=== PATIENT | male | born 1950 | race Caucasian/White ===

== ENCOUNTER 2024-01-07 03:32 | Observation (INO) | payer MEDICARE, OTHER, SELFPAY ==
[2024-01-06] VITALS (13 sets, daily range): BP systolic 79–120; BP diastolic 57–90; BMI 27.4
[2024-01-06 18:35] LABS: % Basophils 0.7 % (0-2); % Eosinophils 1.5 % (0-6); % Immature Granulocytes 0.5 % (0-0.5); % Lymphocytes 5.6 % (20.5-51.1); % Neutrophils 83.7 % (42.2-75.2); Absolute Basophils 0.1 10^3/uL (0-0.2); Absolute Eosinophils 0.3 10^3/uL (0-0.7); Absolute Immature Granulocytes 0.1 10^3/uL (0-0.05); Absolute Lymphocytes 0.9 10^3/uL (1.2-3.4); Absolute Monocytes 1.3 10^3/uL (0.1-0.6); Absolute Neutrophils 14.1 10^3/uL (1.4-6.5); Hematocrit 47.6 % (39.0-52.0); Mean Corp Hgb Conc. 33.6 g/dL (33.0-37.0); Mean Corpuscular Hgb 30.1 pg (27.0-31.0); Mean Corpuscular Volume 89.6 fL (80.0-94.0); Nucleated Red Blood Cells % 0 % (-); Platelet Count 261 10^3/uL (130-400); Red Blood Cell Count 5.31 10^6/uL (4.70-6.10); Red Cell Dist. Width 14.5 % (11.5-14.5); White Blood Cell Count 16.8 10^3/uL (4.8-10.8)
[2024-01-06] MEDS: NSS 1000 IV ×2 (18:37→20:45)
[2024-01-06 18:49] LABS: ALT (SGPT) 32 U/L (0-50); AST (SGOT) 30 U/L (17-59); Albumin 4.8 g/dl (3.5-5.0); Alkaline Phosphatase 73 U/L (38-126); Blood Urea Nitrogen 21 mg/dl (9-20); Calcium 10.1 mg/dl (8.4-10.2); Carbon Dioxide 20 mmol/L (22-30); Chloride 105 mmol/L (98-107); Estimated Creatinine Clearance 45 ml/min; Glucose 113 mg/dl (70-99); Lipase 99 U/L (23-300); Potassium 5.2 mmol/L (3.5-5.1); Sodium 134 mmol/L (135-145); Total Bilirubin 0.8 mg/dl (0.2-1.3); Total Protein 7.7 g/dl (6.3-8.2); eGFR 48.55
--- NOTE | 2024-01-06 19:21 | ED.GENMED ---
History of Present Illness
<MARTINEZ Shields - Last Filed: 01/07/24 00:18>
General
Chief Complaint: Abdominal Pain
Source: patient and spouse
Exam Limitations: none
Time Seen by Provider: 01/06/24 18:35
Travel History
Have you had any contact with someone who has COVID-19?: No
Do you have any symptoms of coronavirus? Fever > 100 degrees, chills, cough, shortness of breath, sore throat, loss of taste or smell, muscle aches, or headache?: No
History of Present Illness
History of Present Illness:
This is a 73 year old male that comes in with c/o syncope and abd pain. states that they were at a and he told her he did not feel well. States that she took him home so he could lay down. State that she came home after the
and he said that he felt some better. Then he went into the BR, and he was on the toilet. State that he had a normal BM and then diarrhea. states that she went into the BR and he was bent over and and unresponsive to her. State that he was not
speaking. Patient states that he was dizzy and started to sweat. States that he really did not eat today and he only had coffee. State that he had abd pain, nausea and the diarrhea with a headache and dizziness. Denies any fever, chills, chest pain,
SOB, Vomiting, urinary burning.
Past History
<MARTINEZ Shields - Last Filed: 01/07/24 00:18>
Past History
ED Past Medical History: CAD, CVA, HTN, Hypercholesterolemia, NIDDM and Other (Numbness or arms and legs ,Bowel obstruction)
ED Past Surgical History: Appendectomy and Other (Aortic-Iliac bypass, carotid right endarterectomy)
Social History
Tobacco: Former smoker
Alcohol: None
Drug: None
Personal: Single
Living: with family
Review of Systems
<MARTINEZ Shields - Last Filed: 01/07/24 00:18>
Review of Systems
All Other Systems: ROS reviewed and negative except as documented in HPI and ROS
Constitutional: Reports no symptoms; Denies fever or chills
EENT: Reports no symptoms
Respiratory: Reports no symptoms; Denies cough or trouble breathing
Cardiac: Reports no symptoms; Denies chest pain
ABD/GI: Reports abdominal pain, nausea and diarrhea; Denies vomiting
: Reports no symptoms; Denies dysuria, frequency or urgency
Musculoskeletal: Reports no symptoms
Skin: Reports no symptoms
Neurological: Reports dizzy and headache
Psychiatric: Reports no symptoms
Phy Exam
<MARTINEZ Shields - Last Filed: 01/07/24 00:18>
General Physical Exam
General Presentation: no apparent distress
General age: appears stated age
General Skin: warm and dry
General Habitus: elderly
General Mental: alert
General Hydration: dry mucous membranes
ENT Exam
ENT Exam: TM's normal, pharynx normal and neck supple
Eye Exam
Eye Exam: EOMI
Cardiovascular Exam
Cardiovascular Exam: regular rate/rhythm, no edema and normal peripheral pulses
Pulmonary Exam
Pulmonary Exam: lungs clear, no respiratory distress, no rales, chest non tender, no crackles, no rhonchi, no wheezing and no cough
Gastrointestinal Exam
Gastrointestinal Exam: non tender, soft, no organomegaly, no pulsatile mass, non distended and other (Hyperactive bowel sounds)
Musculoskeletal Exam
Musculoskeletal Exam: full ROM and no edema
Skin Exam
Skin Exam: normal color, warm/dry, no rash and no petechia
Psychiatric Exam
Psychiatric Exam: normal mood/affect
Course
<MARTINEZ Shields - Last Filed: 01/07/24 00:18>
Orders/Labs/Results
Orders:
Orders
01/06/24 18:13
Electrocardiogram (*1) Urgent
Reason for Study: Syncope
EKG- Treatment ONCE
01/06/24 18:26
Complete Blood Count/With Diff Urgent
Comprehensive Metabolic Panel Urgent
Lipase Urgent
01/06/24 18:36
0.9% Sodium Chloride 1000 ml [Nss] 1,000 ml IV BOLUS
01/06/24 19:19
Ondansetron Injectable [Zofran] 4 mg IV NOW STA
01/06/24 19:20
CT Head W/o Iv Contrast Urgent
Comment: Syncope
Reason For Exam: Headache, dizziness,
Orthostatic VS- Treatment ONCE
01/06/24 19:56
Troponin I Urgent
01/06/24 20:45
0.9% Sodium Chloride 1000 ml [Nss] 1,000 ml IV BOLUS
01/06/24 22:15
CT Chest/abd/pelvis Angio W/wo Urgent
Comment:
Reason For Exam: Hypotension, BP different in arms, abd pain
01/06/24 23:23
Troponin I Urgent
Urinalysis Reflex To Culture Urgent
Date Specimen was Collected: 01/06/24
Time Specimen was Collected: 22:38
Abnormal Lab Results
01/06/24
18:26
WBC 16.8 H 10^3/uL
(4.8-10.8)
Abs Immat Gran (auto) 0.1 H 10^3/uL
(0-0.05)
Absolute Neuts (auto) 14.1 H 10^3/uL
(1.4-6.5)
Absolute Lymphs (auto) 0.9 L 10^3/uL
(1.2-3.4)
Absolute Monos (auto) 1.3 H 10^3/uL
(0.1-0.6)
Neutrophils % 83.7 H %
(42.2-75.2)
Lymphocytes % 5.6 L %
(20.5-51.1)
Sodium 134 L mmol/L
(135-145)
Potassium 5.2 H mmol/L
(3.5-5.1)
Carbon Dioxide 20 L mmol/L
(22-30)
BUN 21 H mg/dl
(9-20)
Creatinine 1.5 H mg/dL
(0.7-1.3)
Glucose 113 H mg/dl
(70-99)
01/06/24 18:26
01/06/24 18:26
Leukocytosis, Sodium slightly low. Potassium slightly elevated. Carbon dioxide slightly low. Dehdyration. Glucose nonfasting. Troponin <0.012, Lipase normal at 99
Urine negative for infection. Second Troponin <0.012
Vital Signs
Initial and Last Documented VS:
Initial Vital Signs
Temp Pulse Resp BP Pulse Ox
97.8 F 70 18 82/57 96
01/06/24 18:07 01/06/24 18:07 01/06/24 18:07 01/06/24 18:07 01/06/24 18:07
Last Documented Vital Signs
Temp Pulse Resp BP Pulse Ox
97.8 F 78 22 117/90 93
01/06/24 18:07 01/06/24 23:19 01/06/24 23:19 01/06/24 23:17 01/06/24 23:19
<Idris Villanueva MD - Last Filed: 01/06/24 21:19>
Orders/Labs/Results
Orders:
Orders
01/06/24 18:13
Electrocardiogram (*1) Urgent
Reason for Study: Syncope
EKG- Treatment ONCE
01/06/24 18:26
Complete Blood Count/With Diff Urgent
Comprehensive Metabolic Panel Urgent
Lipase Urgent
01/06/24 18:36
0.9% Sodium Chloride 1000 ml [Nss] 1,000 ml IV BOLUS
01/06/24 19:19
Ondansetron Injectable [Zofran] 4 mg IV NOW STA
01/06/24 19:20
CT Head W/o Iv Contrast Urgent
Comment: Syncope
Reason For Exam: Headache, dizziness,
Orthostatic VS- Treatment ONCE
01/06/24 19:56
Troponin I Urgent
01/06/24 20:45
0.9% Sodium Chloride 1000 ml [Nss] 1,000 ml IV BOLUS
01/06/24 22:15
CT Chest/abd/pelvis Angio W/wo Urgent
Comment:
Reason For Exam: Hypotension, BP different in arms, abd pain
01/06/24 23:23
Troponin I Urgent
Urinalysis Reflex To Culture Urgent
Date Specimen was Collected: 01/06/24
Time Specimen was Collected: 22:38
Abnormal Lab Results
01/06/24
18:26
WBC 16.8 H 10^3/uL
(4.8-10.8)
Abs Immat Gran (auto) 0.1 H 10^3/uL
(0-0.05)
Absolute Neuts (auto) 14.1 H 10^3/uL
(1.4-6.5)
Absolute Lymphs (auto) 0.9 L 10^3/uL
(1.2-3.4)
Absolute Monos (auto) 1.3 H 10^3/uL
(0.1-0.6)
Neutrophils % 83.7 H %
(42.2-75.2)
Lymphocytes % 5.6 L %
(20.5-51.1)
Sodium 134 L mmol/L
(135-145)
Potassium 5.2 H mmol/L
(3.5-5.1)
Carbon Dioxide 20 L mmol/L
(22-30)
BUN 21 H mg/dl
(9-20)
Creatinine 1.5 H mg/dL
(0.7-1.3)
Glucose 113 H mg/dl
(70-99)
01/06/24 18:26
01/06/24 18:26
Vital Signs
Initial and Last Documented VS:
Initial Vital Signs
Temp Pulse Resp BP Pulse Ox
97.8 F 70 18 82/57 96
01/06/24 18:07 01/06/24 18:07 01/06/24 18:07 01/06/24 18:07 01/06/24 18:07
Last Documented Vital Signs
Temp Pulse Resp BP Pulse Ox
97.8 F 78 22 117/90 93
01/06/24 18:07 01/06/24 23:19 01/06/24 23:19 01/06/24 23:17 01/06/24 23:19
<MARTINEZ Shields - Last Filed: 01/07/24 00:18>
MDM/Problems Addressed
Differential Diagnosis Includes:
Viral GI Syndrome, Dehydration, Orthostatic.
MDM/Problems Addressed:
This is a 73 year old male that comes in with c/o abd pain, dizziness and headache. States that he had a BM and diarrhea and he must have passed out as found him slumped over on the toilet. States that he was dizzy and became sweaty.
Will check labs. CT head, Give IV fluids
CT angio cont: Internal iliac artery with distal reconstitution if also seen. Satisfactory contrast bolus to assess for PE. No evidence of PE. Additional findings: Scattered chronic calcified granulomatous disease. vascular calcifications including
coronary artery calcifications. Diffuse low attenuation of the liver may be related to the arterial phase acquisition of fatty liver. DJD. Colonic diverticulosis. Right renal cystic focus. Few hypodense lesions in the spleen, which may represent
pseudocysts or hemangiomas.
back into see patient. Explained that his BP is still low after 2 liters of fluid and his CT Scan shows some age-indeterminate dissections involving the bilateral external iliac arteries. There is also bilateral common iliac arteries, and bilateral
external iliac arteries suspicious for vasculitis. Will admit patient for further evaluation. Explained to patient that this may just be over night. Hospitalist notified.
Chronic conditions affecting care:
Prior Bowel obstruction
Acute Exacerbation and/or Progression of Chronic Illness:
NA
<MARTINEZ Shields - Last Filed: 01/07/24 00:18>
*Radiology
Radiology exam reviewed: radiology read reviewed (CT head-No evidence of acute intracranial abnormality. CT angio chest/Abd/pelvis- Within the limitation of a non-gated study, no evidence of aortic dissection in the chest, abd or pelvis. No
evidence of aortic intramural hematoma within the chest. Age-indeterminate dissections involving the ), all reviewed NAD by ED Provider (CT angio cont- bilateral external iliac arteries. Circumferential mural thickening of the infrarenal abdomina
aorta, bilateral common iliac arteries, and bilateral external iliac arteries, suspicious for vasculitis. 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 Similar appearance) and other (CT cont-of early brancing versus fenestration
versus chronic dissection of the infrarenal abdominal aorta. Severe stenosis of the proximal SMA. Redemonstrated occlusion of the left internal iliac artery, which is also involved by circumferential thickening. Short segment occlusion of proximal
right )
*Pulse Oximetry
Patient hypoxic: no
*EKG
Interpreted by ED Provider?: Yes
Heart Rate: 69
Rate: normal
Rhythm: sinus
[place]: left axis deviation
Interval: normal interval
QRS Pattern: normal QRS
Ischemia: no ischemia (Checked by Dr. Villanueva)
*[employer] Person Interpretation
Rate: normal
Heart Rate: 75
Rhythm: sinus
*Critical Care Note
Total Time (30-74mins, 75-104mins- exclusive of procedures): Not Applicable
ED Attending Note
<MARTINEZ Shields - Last Filed: 01/07/24 00:18>
-
Portions of this chart may have been created with voice recognition software.� Occasional wrong word or��sound alike� substitutions may have occurred due to the inherent limitations of voice recognition software.
<Idris Villanueva MD - Last Filed: 01/06/24 21:19>
ED Attending Note
Patient seen and examined by attending physician: Yes
I performed the substantive portion of visit, reviewed & personally made and approve the management plan that is documented in note by myself or SUE.: Yes
ED Attending Note:
73-year-old male with episode of syncope while on the toilet. Has some abdominal symptoms at a . When he went home he had to have a bowel movement. Had a large amount of stool and diarrhea. No blood no black or tarry. Then had
diaphoresis and passed out on the toilet. No trauma. Feels well now.
On exam patient is nontoxic in no distress. He is however hypotensive. Blood pressure was in the 80s after fluids currently in the 90s. He is perfusing well warm and dry. Lungs are clear heart regular rate and rhythm abdomen soft and nontender.
What nonfocal.
Impression abdominal symptoms followed by syncope. Likely vasovagal syncope however ongoing hypotension further workup needs to be considered including CT of the abdomen pelvis and repeat cardiac testing.
Discharge Plan
Departure
Patient Disposition: Admit
Date of Disposition: 01/07/24
Time of Disposition: 00:17
Admit to: Telemetry
Presentation/result/management discussed w/ accepting MD/DO: Hospitalist
Patient with high blood pressure during this ER visit?: No
Condition: Good
Covid-19: Not Applicable
Discharge Problem:
Hypotension, Syncope
Prescriptions:
No Action
metoprolol tartrate [Lopressor] 50 mg Tablet
50 mg PO BID Qty: 0
Patient Comments:
atorvastatin 80 mg tablet
80 mg PO QPM
amlodipine [Norvasc] 2.5 mg Tablet
2.5 mg PO DAILY
clopidogrel [Plavix] 75 mg Tablet
75 mg PO DAILY
aspirin 81 mg Tablet,Delayed Release (Dr/Ec)
81 mg PO DAILY
glipizide-metformin 5-500 mg tablet
1 tab PO BID
Referrals:
Lenny Barbosa MD [Family Provider] -
Interventions
Interventions:
*Risk Screen - Suicide Last Done: 01/06/24 18:07
*General Assessment Last Done: 01/06/24 18:07
*Neglect/Abuse Screening Last Done: 01/06/24 18:07
CY-Hrzosf-Ljddbqczxn Assessment Last Done: 01/06/24 18:22
Discharge Date and Time
Print Language: RWANDAN
[2024-01-06] MEDS: ZOFRAN 4 MG IV (20:01)
[2024-01-06 20:24] LABS: Troponin I < 0.012 ng/ml
[2024-01-06 23:30] LABS: Urine Albumin Negative (Neg - Trace); Urine Bilirubin Negative (Negative); Urine Character Clear (Clear); Urine Color Yellow; Urine Glucose Negative (Negative); Urine Ketone Negative (Negative); Urine Leukocyte Negative (Negative); Urine Nitrite Negative (Negative); Urine Occult Blood Negative (Negative); Urine Specific Gravity 1.015 (<1.030); Urine Urobilinogen Negative (Neg - 1+)
[2024-01-06 23:55] LABS: Troponin I < 0.012 ng/ml
[2024-01-07] VITALS (16 sets, daily range): BP systolic 97–154; BP diastolic 44–87; PULSE 62–82
--- NOTE | 2024-01-07 00:58 | EDRN ---
At 00:15, pt.'s pulse ox. dropped to 88/89% on RA while sleeping. Pt. denies hx. of sleep apnea, denies shortness of breath. Pt. placed on 2LNC while sleeping, pulse ox. now 95%.
--- NOTE | 2024-01-07 02:29 | HPS.HSE ---
Family Physician
-
Family Physician: Lenny Barbosa
Chief Complaint
-
Syncope
History of Present Illness
Patient is a 73y M with PMH significant for severe ASCVD, hypertension and DM-II who presents to ED complaining of syncopal event at home. Patient states that he felt well yesterday. Today he attended a and noted that he did not feel
well during the service. He was weak and tired and perhaps mildly nauseous. He went home following the service and took a nap. He woke from sleep with the urge to move his bowels. While on the toilet, he became sweaty, dizzy / lightheaded. He
is not certain if he completely lost consciousness at any point. He had diarrhea after these symptoms began.
EMS was called and patient was brought to the ED for further evaluation.
Here in the ED, he states that he feels well. He is thirsty / hungry and notes that he has had nothing to eat since a bowl of oatmeal at 4 AM.
Patient denies any chest pain, abdominal pain, nausea at present.
He denies any prior history of similar symptoms.
Medical History
Past Medical History
Past Medical History: Reports Other
Additional Past Medical History:
Severe ASCVD (Carotid disease, CVA, PAD)
Hypertension
Meningioma
Past Surgical History: Reports Other
Additional Past Surgical History:
Right CEA
Aorto-BiIliac Bypass x 2
Appendectomy
Lumbar Spine Surgery
Social History
Tobacco: Smoker (Current some day smoker. > 50 pack years total use.)
Alcohol: Former (History of alcohol use - none in several years.)
Drug: None
Family History
Family History: CAD and Diabetes
Allergies / Home Medications
Allergies reflects when Allergies were last updated in [facility].
Home Medications with original date entered in [facility]
Allergy/Medication List:
Allergies
Allergy/AdvReac Type Severity Reaction Status Date / Time
No Known Allergies Allergy Verified 06/17/22 11:05
Home Medications
metoprolol tartrate 50 mg tablet (Lopressor) 50 mg PO BID Blood pressure ##0 11/24/14
amlodipine 2.5 mg tablet (Norvasc) 2.5 mg PO DAILY Blood pressure 06/17/22
aspirin 81 mg tablet,delayed release 81 mg PO DAILY Blood clot prevention/tx 06/17/22
atorvastatin 80 mg tablet 80 mg PO QPM High cholesterol 06/17/22
clopidogrel 75 mg tablet (Plavix) 75 mg PO DAILY Blood clot prevention/tx 06/17/22
glipizide 5 mg-metformin 500 mg tablet 1 tab PO BID Diabetes 06/17/22
Review of Systems
-
History Source: Patient
A 12 point ROS was completed and negative except as noted: Yes
Constitutional: Reports Fatigue; Denies Fever or Chills
EENT: Denies Sore Throat
Respiratory: Denies Cough or Trouble Breathing
Cardiac: Reports Diaphoresis and Syncope; Denies Chest Pain or Palpitations
Abdomen/GI: Reports Nausea and Diarrhea; Denies Abdominal Pain, Vomiting, Constipated, Bloody Stools or Black Stools
: Denies Dysuria, Frequency or Flank Pain
Musculoskeletal: Denies Joint Pain, Joint Swelling or Edema
Neurological: Reports Dizzy; Denies Headache
Psych: Denies Depression or Anxiety
Physical Exam
Vital Signs
Vital Signs
Temp Pulse Resp BP Pulse Ox
97.8 F 78 16 125/65 92
01/06/24 18:07 01/07/24 01:45 01/07/24 01:45 01/07/24 01:30 01/07/24 01:45
Physical Exam
General: Other (73y M in no acute distress.)
HEENT: Moist mucous membranes and PERRLA
Respiratory: Clear; No Wheezes, Rales or Rhonchi
Cardiac: S1/S2 and Regular Rhythm; No Murmur
GI: Soft, Non Tender, Non Distended and Normal Bowel Sounds
Musculoskeletal: No Clubbing, No Cyanosis and No Edema
Neuro: AO x 3 and Nonfocal/grossly intact
Laboratory Results
-
01/06/24 18:26
01/06/24 18:
Laboratory Results
Total Bilirubin 0.8 mg/dl (0.2-1.3) 01/06/24 18:
AST 30 U/L (17-59) 01/06/24 18:
ALT 32 U/L (0-50) 01/06/24 18:
Alkaline Phosphatase 73 U/L (38-126) 01/06/24 18:
Troponin I < 0.012 ng/ml 01/06/24 23:23
Lipase 99 U/L (23-300) 01/06/24 18:26
Impression/Plan
-
A/P: Patient is a 73y M with PMH significant for ASCVD, hypertension and DM-II who presents to ED for evaluation s/p syncopal event at home.
Syncope
- Observe overnight for further evaluation and treatment.
- Highly suspicious for vasovagal event given preceding GI symptoms / bowel movement.
- Monitor on tele for any arrhythmia.
- IVF support overnight.
- Follow for any new / recurrent symptoms.
- CT head done in the ED shows chronic / stable encephalomalacia from prior CVA and stable meningioma.
ASCVD
- Patient with severe ASCVD including carotid, CVA, PAD, etc.
- s/p multiple procedures in the past. No coronary stents.
- CTA results reviewed with no significant / acute findings.
- Proximal SMA stenosis seen - may benefit from IR evaluation if he has recurrent abdominal symptoms.
- Continue usual med regimen including DAPT, statin, etc.
- Follow for any new / worsening symptoms.
Benign Hypertension
- Holding parameters for BP medications to avoid hypotension or bradycardia.
- Adjust as needed.
DM-II
- Stable. No noted hypoglycemia; however, patient took AM sulfonylurea / metformin combo today and had only a bowl of oatmeal to eat in the past 24 hours.
- Hold PO meds for now.
- Follow glucose and cover with SSI (or supplemental dextrose) as needed.
- Update A1C.
DVT Prophylaxis: SCDs
Code Status: Full
[2024-01-07] MEDS: NSS 1000 IV (04:57)
[2024-01-07 05:16] LABS: Hematocrit 38.1 % (39.0-52.0); Hemoglobin 12.8 g/dL (13.0-18.0); Mean Corp Hgb Conc. 33.6 g/dL (33.0-37.0); Mean Corpuscular Hgb 29.7 pg (27.0-31.0); Mean Corpuscular Volume 88.4 fL (80.0-94.0); Mean Platelet Volume 9.9 fL (7.4-10.4); Platelet Count 202 10^3/uL (130-400); Red Blood Cell Count 4.31 10^6/uL (4.70-6.10); Red Cell Dist. Width 14.5 % (11.5-14.5)
[2024-01-07 05:54] LABS: Blood Urea Nitrogen 19 mg/dl (9-20); Calcium 8.8 mg/dl (8.4-10.2); Carbon Dioxide 20 mmol/L (22-30); Chloride 109 mmol/L (98-107); Estimated Creatinine Clearance 56 ml/min; Glucose 103 mg/dl (70-99); Potassium 4.5 mmol/L (3.5-5.1); Sodium 135 mmol/L (135-145); eGFR > 60.00
[2024-01-07 06:24] LABS: TSH Reflex To Free T4 0.58 uIU/ml (0.47-4.68)
[2024-01-07 08:50] LABS: Glycohemoglobin (HgbA1c) 6.7 % (4.0-5.6)
--- NOTE | 2024-01-07 09:21 | W.PN.HOSP.TC ---
Today's Communication/Plan
-
possible d/c later today
assess for home O2
check orthostatics
Assessment / Plan
Assessment / Plan
pt is a 73 year old male
Syncope--likely due to vasovagal from GI symptoms/diarrhea--stop IVF--check orthostatics--CT head done in the ED shows chronic / stable encephalomalacia from prior CVA and stable meningioma.
ASCVD--severe ASCVD including carotid, CVA, PAD, abdominal etc-- -s/p multiple procedures in the past--No coronary stents--await CTA results--trouble getting BP in right arm likely due to ASCVD compared to left--Proximal SMA stenosis seen - may
benefit from IR evaluation if he has recurrent abdominal symptoms--Continue usual med regimen including DAPT, statin, etc.
acute hypoxemic resp insufficiency--suspected sleep apnea--not formally diagnosed--assess for home O2--will need outpt sleep eval
Essential Hypertension- Holding parameters for BP medications to avoid hypotension or bradycardia.
DM-II- Stable. No noted hypoglycemia; however, patient took AM sulfonylurea / metformin combo day of admission and had only a bowl of oatmeal to eat in the past 24 hours- Hold PO meds for now - Update A1C.
DVT Prophylaxis: SCDs
Code Status: Full
Anticipated Discharge: Today
Subjective/Interval History
-
Date of Service: January 07, 2024
pt feels fine--does see a vascular doctor at [place] twice per year--just saw in November
Objective Data
-
Labs:
Laboratory Results
01/07/24
05:08
WBC 8.0
Hgb 12.8 L
Hct 38.1 L
Plt Count 202 D
Sodium 135
Potassium 4.5
Chloride 109 H
Carbon Dioxide 20 L
BUN 19
Creatinine 1.2
Glucose 103 H
Calcium 8.8
Vital Signs:
max temp for 24 hours
06/19/22
11:00
Temp 98.3 F
Vital Signs
Temp Pulse Resp BP Pulse Ox
98 F 73 14 132/61 83
01/07/24 08:34 01/07/24 07:00 01/07/24 07:00 01/07/24 06:00 01/07/24 08:17
Review of Systems
-
All other systems: Reviewed and negative
Physical Exam
-
General: Well Developed, Well Nourished and No Apparent Distress
HEENT: Normocephalic, Atraumatic and Oxygen
Respiratory: Clear to Auscultation; Negative Wheezes or Rhonchi
Cardiac: Regular Rhythm and S1/S2; Negative Murmur
GI: Soft, Nontender, Nondistended and Normal Bowel Sounds
Musculoskeletal: No Clubbing, No Cyanosis and No Edema
Skin: Warm and Dry
Neuro: Awake, Alert and Other (bilateral carotid bruits)
--- NOTE | 2024-01-07 09:32 | CM ---
CM reviewed medical records. OBS letter given.
Patient confirmed demographics. Patient lives independently with . Patient denies history of VN, SNF or DME. Patient uses [facility] for medication services. Patient is active with his PCP.
PLAN: Home no needs.
[2024-01-07] MEDS: PLAVIX 75 MG PO (10:34)
[2024-01-07] MEDS: LOPRESSOR 50 MG PO (10:34)
[2024-01-07] MEDS: ASPIR LOW (ENTERIC COATED) 81 MG PO (10:34)
--- NOTE | 2024-01-07 10:50 | PTCARENOTE ---
pt aaox3. states no pain or sob. nsr seen on monitor. placed on room air o2 sat 95%. ortho vs done pt walks to bathroom. states no dizziness.
--- NOTE | 2024-01-07 11:26 | CM ---
Patient medically ready for discharge to home. No needs noted.
PLAN: Home no needs.
--- NOTE | 2024-01-07 13:38 | W.DCSUMMARY ---
Discharge Summary
Discharge Data
Date of Admission: 01/07/24
Date of Discharge: 01/07/24
-
Pending Results: No
Hospital Course
Primary care physician : Lenny Barbosa
Principal Discharge diagnosis : Syncope likely vasovagal
Chronic Discharge diagnosis : Atherosclerotic cardiovascular disease/severe, essential hypertension, type 2 diabetes
Hospital Course : Patient is a 73-year-old male with a history of severe atherosclerotic cardiovascular disease, essential hypertension and type 2 diabetes who presented after a syncopal episode. Patient stated that he went to a and did not
feel well. He was weak and tired and mildly nauseous. He went home and took a nap. He then woke up with the urge to move his bowels. While on the toilet he became sweaty, dizzy, and lightheaded. Patient was brought in as observation.
Problem #1: Syncope likely vasovagal in nature. Patient had no further episodes while in the hospital. He did receive IV fluids. Orthostatics were done and were within normal limits. Initial head CT done in the emergency department showed
chronic and stable encephalomalacia from a prior CVA and a stable meningioma. Patient also had CT a of the chest abdomen and pelvis. This showed significant stenosis including a proximal SMA stenosis. A disc of his imaging studies has been
provided to him. He has been instructed to follow-up with his vascular doctor as these stenotic vessels may contribute to some of his syncope and/or GI issues.
Also of note, the patient was placed on oxygen for a pulse ox of 88%. # Concern for undiagnosed sleep apnea. Patient has been instructed to follow-up with a pulmonary doctor to get an outpatient sleep study. Assessment for home oxygen reveals him
to be 95% on room air and does not need any further oxygen.
Problem #2: All other medical issues. These include Atherosclerotic cardiovascular disease/severe, essential hypertension, type 2 diabetes. These medical issues were stable during his hospitalization. Medications were continued as able.
Patient is stable for discharge home at this time. If there are any questions regarding this dictation or his hospital stay, please not hesitate to call. Our office number is [phone].
Important imaging findings :
CT ANGIO CHEST/ABDOMEN/PELVIS IMPRESSION:
1. No evidence of aortic dissection, aortic aneurysm, or central pulmonary embolism.
2. 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 Less than 50% stenosis of the celiac axis. 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 Please correlate for symptoms of chronic mesenteric ischemia.
3. 6 mm nodule at the right lung base, not significantly changed compared to multiple prior studies including 03/26/2017, therefore likely benign.
4. Moderate coronary arterial calcification. Please correlate with symptoms of and risk factors for coronary artery disease, with further workup as clinically appropriate.
HEAD CT IMPRESSION:
No evidence of acute intracranial abnormality.
Discharge Plan
-
Patient Disposition: Home (Routine Discharge)
Discharge Diagnosis/Procedures: Syncope likely due to vasovagal from GI symptoms, atherosclerotic cardiovascular disease significant and severe, acute hypoxemic respiratory insufficiency�resolved, essential hypertension, type 2 diabetes mellitus
Condition: Good
Diet: As tolerated and Diabetic, Carb Controlled
Activity: As tolerated
Driving Restrictions: As prior to admission
Bathing Restrictions: None
Activity Restrictions/Additional Instructions:
Please follow-up with your vascular doctor--you are being provided with a disc from your imaging studies--it may be reasonable to set up a follow-up sooner than May
Referrals:
Lenny Barbosa MD [Family Provider] - in less than 1 week
Prescriptions:
New
metoprolol tartrate 25 mg Tablet
25 mg PO BID Qty: 0 0RF
Continued
atorvastatin 80 mg tablet
80 mg PO HS
amlodipine [Norvasc] 2.5 mg Tablet
2.5 mg PO DAILY
clopidogrel [Plavix] 75 mg Tablet
75 mg PO DAILY
aspirin 81 mg Tablet,Delayed Release (Dr/Ec)
81 mg PO DAILY
glipizide-metformin 5-500 mg tablet
1 tab PO BID
Discontinued
metoprolol tartrate [Lopressor] 50 mg Tablet
25 mg PO BID Qty: 0
Patient Comments:
Discharge Orders:
Discharge Patient (As Directed); Ordered 01/07/24
Ordered By: Mare Dolan
Discharge Date and Time
Discharge Date/Time: 01/07/24 12:00
Print Language: FRISIAN
== END 2024-01-07 12:00 | disposition home or self-care (01) ==
LOC: ED 03:32
PROVIDERS: Clinical Nurse Specialist Family Health; ADMITTING PHYSICIAN Hospitalist; ATTENDING PHYSICIAN Internal Medicine; EMERGENCY PHYSICIAN Emergency Medicine; FAMILY PHYSICIAN Internal Medicine
DX: R55 Syncope and collapse (principal); R10.9 Unspecified abdominal pain; R11.0 Nausea; R19.7 Diarrhea, unspecified; R42 Dizziness and giddiness; R51.9 Headache, unspecified; I10 Essential (primary) hypertension; I25.10 Atherosclerotic heart disease of native coronary artery without angina pectoris; G93.89 Other specified disorders of brain; D32.0 Benign neoplasm of cerebral meninges; F17.210 Nicotine dependence, cigarettes, uncomplicated; K57.30 Diverticulosis of large intestine without perforation or abscess without bleeding; R09.02 Hypoxemia; R06.89 Other abnormalities of breathing; E11.51 Type 2 diabetes mellitus with diabetic peripheral angiopathy without gangrene; E78.00 Pure hypercholesterolemia, unspecified; I95.9 Hypotension, unspecified; Z86.73 Personal history of transient ischemic attack (TIA), and cerebral infarction without residual deficits; Z79.02 Long term (current) use of antithrombotics/antiplatelets; Z79.82 Long term (current) use of aspirin; Z79.84 Long term (current) use of oral hypoglycemic drugs
CPT/HCPCS: 70450; 71275; 74174; 80048; 80053; 81003; 83036; 83690; 84443; 84484; 85025; 85027; 93005; 99285; G0378; Q9967

== ENCOUNTER → 2024-09-18 11:17 | Outpatient (REF) | payer MEDICARE, OTHER, SELFPAY | LOC: HWRAD 11:17 | PROVIDERS: ATTENDING PHYSICIAN Internal Medicine | DX: R05.9 Cough, unspecified (principal) | CPT/HCPCS: 71046 ==

== ENCOUNTER 2025-06-26 06:27 | Day surgery (SDC) | payer MEDICARE, OTHER, SELFPAY ==
[2025-06-26 07:41] LABS: Glucose - Point of Care 172 mg/dl (70-99)
== END 2025-06-26 10:21 | disposition home or self-care (01) ==
LOC: GI 06:27
PROVIDERS: ATTENDING PHYSICIAN Student in an Organized Health Care Education/Training Program
DX: Z12.11 Encounter for screening for malignant neoplasm of colon (principal); D12.0 Benign neoplasm of cecum; D12.3 Benign neoplasm of transverse colon; D12.4 Benign neoplasm of descending colon; D12.7 Benign neoplasm of rectosigmoid junction; K63.89 Other specified diseases of intestine; K57.30 Diverticulosis of large intestine without perforation or abscess without bleeding; K64.8 Other hemorrhoids; D17.79 Benign lipomatous neoplasm of other sites; K22.89 Other specified disease of esophagus; K31.89 Other diseases of stomach and duodenum; Z80.0 Family history of malignant neoplasm of digestive organs
CPT/HCPCS: 45385; 45380; 43239; 82962; 88305; 88342